=== PATIENT | female | born 1970 | race Caucasian/White ===

== ENCOUNTER → 2016-07-13 | Outpatient (CLI) | payer OTHER ==
[~2016-07-13] MED LIST: ADVAIR 250-501 EACH INH; AMOXICILLIN500 MG PO; COLACE 100MG C100 MG PO; IBUPROFEN800 MG PO; KLONOPIN TAB 00.5 MG PO; LORTAB 7.5-3251 EACH PO; MEDROXYPROGESTE10 MG PO; NORCO 7.5-3251 EACH PO; ROPINIROLE HC0.25 MG PO; SIMVASTATIN20 MG PO; TRAMADOL HCL50 MG PO; VENTOLIN/PROVE0.5 ML INH
[2016-07-13 10:45] LABS: RED BLOOD COUNT 4.6 M/UL (4.00-5.10); WHITE BLOOD COUNT 8.1 K/UL (4.5-11.0)
== END ==
LOC: OPSV2 09:33
PROVIDERS: Obstetrics & Gynecology
DX: Z01.812 Encounter for preprocedural laboratory examination (principal); N92.0 Excessive and frequent menstruation with regular cycle
CPT/HCPCS: 36415; 81001; 85025

== ENCOUNTER → 2016-07-20 | Day surgery (SDC) | payer OTHER ==
[~2016-07-20] VITALS: Ht 162.6 cm; Wt 100.2 kg
== END | disposition home or self-care (01) ==
LOC: OR 06:27
PROVIDERS: Obstetrics & Gynecology
PROC: 0U5B8ZZ Destruction of Endometrium, Via Natural or Artificial Opening Endoscopic (ICD-10-PCS; principal; 2016-07-20 08:00)
DX: N92.0 Excessive and frequent menstruation with regular cycle (principal); D68.0 Von Willebrand disease; J45.909 Unspecified asthma, uncomplicated; M48.00 Spinal stenosis, site unspecified; M19.90 Unspecified osteoarthritis, unspecified site; M54.9 Dorsalgia, unspecified; G89.29 Other chronic pain; E66.9 Obesity, unspecified; F17.210 Nicotine dependence, cigarettes, uncomplicated; Z88.1 Allergy status to other antibiotic agents; Z79.899 Other long term (current) drug therapy; Z86.718 Personal history of other venous thrombosis and embolism; Z79.891 Long term (current) use of opiate analgesic; Z68.37 Body mass index [BMI] 37.0-37.9, adult
CPT/HCPCS: 84703; J1885; J2250; J2405; J2795; J7030; J7120

== ENCOUNTER 2021-09-02 15:05 | Emergency (ER) | payer OTHER ==
[2021-09-02 16:52] LABS: HEMOGLOBIN 15.5 gm/dl (12.3-15.3); RED BLOOD COUNT 4.87 M/UL (4.00-5.10); WHITE BLOOD COUNT 10.9 K/UL (4.5-11.0)
[2021-09-02 17:16] LABS: BUN/CREATININE RATIO 16 (0-10)
[2021-09-02] MEDS ORDERED: VISTARIL 25 MG25 MG PO (23:25)
== END 2021-09-02 23:30 | disposition home or self-care (01) ==
LOC: ER1 15:05
PROVIDERS: Physician Assistant
DX: R07.89 Other chest pain (principal); R06.02 Shortness of breath; E00.2 Congenital iodine-deficiency syndrome, mixed type; I10 Essential (primary) hypertension; J45.909 Unspecified asthma, uncomplicated; Z88.1 Allergy status to other antibiotic agents
CPT/HCPCS: 71045; 80053; 81001; 82550; 82553; 84484; 85025; 85610; 93005; 99285; Q0177

== ENCOUNTER → 2021-09-23 | Outpatient (CLI) | payer OTHER ==
[~2021-09-23] MED LIST changes: +VISTARIL 25 MG25 MG PO
== END ==
LOC: HEART 5 13:30
DX: R00.2 Palpitations (principal)